=== PATIENT | female | born 1950 | race Two or more races ===

== ENCOUNTER 2022-06-01 13:30 | Inpatient (IN) | payer MEDICARE, OTHER ==
[~2022-06-01] VITALS: Ht 152.4 cm; Wt 87.5 kg
--- NOTE | 2022-06-01 14:00 | NUR ---
Togolese speaking only- order runner (NERY Patel) interprets. Pt compliant with care. Made aware of plan of care
[2022-06-01] MEDS ORDERED: ACETAMINOPHEN ES 500 MG TABLET PO ONE (14:30)
[2022-06-01] MEDS ORDERED: ACETAMINOPHEN ES 500 MG TABLET ONE (15:20)
[2022-06-01 15:37] LABS: BASOPHILS % (AUTO) 0.3 % (0.0-2.0); EOSINOPHILS % (AUTO) 3.3 % (0.0-6.0); HEMATOCRIT 41 % (33-45); HEMOGLOBIN 13.3 g/dL (11.5-14.8); LYMPHOCYTES # (AUTO) 1.8 K/uL (0.8-4.8); LYMPHOCYTES % (AUTO) 21.8 % (20.0-44.0); MEAN CORPUSCULAR HGB CONC 32 g/dl (31.0-36.0); MEAN CORPUSCULAR VOLUME 101 fL (82-100); MONOCYTES # (AUTO) 0.7 K/uL (0.1-1.30); MONOCYTES % (AUTO) 8.1 % (2.0-12.0); NEUTROPHILS # (AUTO) 5.5 K/uL (1.8-8.9); NEUTROPHILS % (AUTO) 66.5 % (43.0-81.0); RED BLOOD CELL COUNT(AUTO) 4.08 MIL/uL (4.0-5.2); WHITE BLOOD COUNT (AUTO) 8.3 K/uL (4.3-11.0)
[2022-06-01 15:48] LABS: CALCIUM, SERUM 8.8 mg/dL (8.5-10.1); CARBON DIOXIDE 28 mmol/L (21-32); CHLORIDE 101 mmol/L (98-107); CREATININE 0.8 mg/dL (0.6-1.3); GLUCOSE 96 mg/dL (74-106); SODIUM SERUM 135 mmol/L (136-145); UREA NITROGEN, BLOOD 12 mg/dL (7-18)
--- NOTE | 2022-06-01 16:00 | NUR ---
NO obvious distress. Reclining in Bed. Family in at bedside
[2022-06-01 16:07] LABS: PLATELET COUNT (AUTO) 236 K/uL (150-450)
--- NOTE | 2022-06-01 18:00 | NUR ---
Re-evaluated by MD. Updated by same. Pending admission
--- NOTE | 2022-06-01 19:24 | NUR ---
Report to MARISOL Galvez
--- NOTE | 2022-06-01 19:26 | NUR ---
MOVE SHEET SUBMITTED.
--- NOTE | 2022-06-01 19:27 | NUR ---
RECEIVED REPORT FROM MARISOL BOOTH.
--- NOTE | 2022-06-01 19:28 | NUR ---
COVID SWAB DONE AND SENT TO LAB
--- NOTE | 2022-06-01 19:35 | NUR ---
PATIENT IS AAOX4. ABLE TO MAKE NEEDS KNOWN. RECEIVED WITH IV KORY ON LEFT FA G20. PATIENT WITH OXYGEN INH AT 3LPM SATS 96%.
--- NOTE | 2022-06-01 20:14 | NUR ---
JANET ([facility]) [phone]. GIVE UPDATE
[2022-06-01] MEDS ORDERED: hydrALAZINE HCL IV 20 MG VIAL IV PRN (20:30)
[2022-06-01] MEDS ORDERED: ONDANSETRON HCL/PF 4 MG/2 ML VIAL IVP PRN (20:30)
[2022-06-01] MEDS ORDERED: ACETAMINOPHEN 325 MG TABLET PO PRN (20:30)
[2022-06-01] MEDS ORDERED: MORPHINE SULFATE INJ 2 MG/ML DISP.SYRIN IV PRN (20:30)
--- NOTE | 2022-06-01 20:36 | NUR ---
DIVINA AGUAYO AT BEDSIDE
--- NOTE | 2022-06-01 20:36 | NUR ---
SISTER LILA ([phone]. FOR UPDATES.
--- NOTE | 2022-06-01 20:44 | NUR ---
REPORT GIVEN TO MARISOL KRUSE
[2022-06-01 21:00] VITALS: BP 134/60
--- NOTE | 2022-06-01 21:13 | NUR ---
TRANSFERRED PATIENT TO ROOM VIA ACLS PROTOCOL
[2022-06-01] MEDS: ENOXAPARIN SODIUM 40 MG/0.4 ML DISP.SYRIN SQ SCH ×2 (21:49→22:00)
--- NOTE | 2022-06-01 22:00 | NUR ---
MOTHERCRAFT NURSE ADMISSION NOTES PATIENT ADMITTED CAME FROM ER VIA GURNEY, PATIENT IS TRINIDADIAN SPEAKING, A/O X 4. PATIENT BREATHING EVENLY AND UNLABORED ON OXYGEN VIA NASAL CANNULA AT 3 LPM SATURATING AT 97%. TRANSFER TO BED SAFELY AND SECURED. ON MODERATE HIGH BACK REST POSITION. NO PAIN OR DISTRESS NOTED UPON ADMISSION. WITH VITALS SIGNS OF BP:134/60, TEMP:97.7, RR:20, MA:63, O2:97%. ATTACHED TO TELE MONITORING DEVICE WITH INITIAL READING OF 63S WITH OCC. PVCs NOTED WITH EPISODES OF BRADYCARDIA.DOCTOR ERIC INFORM REGARDING IT AND THE ADMISSION. SKIN ASSESSMENT PERFORMED, SKIN C/D/I. NO EDEMA PRESENT. BOWEL SOUNDS ACTIVE. WITH IV ACCESS AT LEFT FA #20G PATENT AND INTACT. PATIENT WAS ORIENTED TO ROOM AND HOW TO USE THE CALL LIGHT, BELONGINGS ACCOUNTED FOR. SAFELY MEASURES MAINTAINED. KEPT BED ON LOWER LOCK POSITION. KEPT SIDE RAILS UP X3 ALL THE TIME KEPT BED ALARM ON. KEPT CALL LIGHT WITHIN AT REACH. HEAD TO TOE ASSESSMENT DONE AND RECORDED. HISTORY TAKEN AND RECORDED. PATIENT IS COOPERATIVE AND RESPONSIVE. WILL CONTINUE TO MONITOR.
--- NOTE | 2022-06-01 22:00 | NUR ---
FIRER KILN NOTES RECEIVED CALL FROM LAB. WITH LACTIC ACID OF 3.0 DR. REYES INFORM WITH NO NEW ORDER. WILL CONTINUE TO MONITOR
[2022-06-01] MEDS ORDERED: DEXTROSE 50%-WATER 50 ML DISP.SYRIN IV PRN (23:30)
[2022-06-02] VITALS: BP 126/63
[2022-06-02 00:46] LABS: BILIRUBIN,DIRECT 0.2 mg/dL (0.0-0.2); BILIRUBIN,TOTAL 0.4 mg/dL (0.2-1.0)
[2022-06-02 05:00] VITALS: BP 149/70
--- NOTE | 2022-06-02 06:11 | NUR ---
STORES LABORER NOTES NOTED MRSA SWAB NOT DONE BY THE ER. MRSA SWABBED DONE AND SENT TO LABORATORY.
--- NOTE | 2022-06-02 06:12 | NUR ---
HOGSHEAD FILLER CLOSING NOTES PATIENT IS IN BED, ASLEEP ON MODERATE HIGH BACK REST POSITION. HOOKED TO OXYGEN VIA NASAL CANNULA AT 2LPM VIA NASAL CANNULA TOLERATING WELL. NO EPISODES OF SHORTNESS OF BREATH. ATTACHED TO TELE MONITORING DEVICE WITH EPISODES OF BRADYCARDIA AND PVCs NOTED DURING THE SHIFT.WITH IV ACCESS AT LEFT FA#20G SL PATENT AND INTACT.NO S/S OF CHEST PAIN OR DISCOMFORT AT THIS TIME. ON DNR/DNI STATUS.ALL DUE MEDICATIONS GIVEN, ALL NEED ATTENDED. KEPT PATENT WARM AND COMFORTABLE. KEPT PATIENT ON MODERATE HIGH BACK REST POSITION, KEPT SIDE RAILS UP X 2 ALL THE TIME. KEPT CALL LIGHT WITHIN AT REACH. WILL ENDORSED TO AM SHIFT FOR ANTWON.
[2022-06-02 06:18] LABS: BASOPHILS % (AUTO) 0.1 % (0.0-2.0); EOSINOPHILS % (AUTO) 2.9 % (0.0-6.0); HEMATOCRIT 39 % (33-45); HEMOGLOBIN 12.6 g/dL (11.5-14.8); LYMPHOCYTES # (AUTO) 1.2 K/uL (0.8-4.8); LYMPHOCYTES % (AUTO) 17.2 % (20.0-44.0); MEAN CORPUSCULAR HGB CONC 33 g/dl (31.0-36.0); MEAN CORPUSCULAR VOLUME 99 fL (82-100); MONOCYTES # (AUTO) 0.5 K/uL (0.1-1.30); MONOCYTES % (AUTO) 7.1 % (2.0-12.0); NEUTROPHILS # (AUTO) 5.2 K/uL (1.8-8.9); NEUTROPHILS % (AUTO) 72.7 % (43.0-81.0); PLATELET COUNT (AUTO) 225 K/uL (150-450); WHITE BLOOD COUNT (AUTO) 7.2 K/uL (4.3-11.0)
[2022-06-02 06:43] LABS: ALANINE AMINOTRANSFERASE 16 U/L (12-78); ALBUMIN 3.3 g/dL (3.4-5.0); ALKALINE PHOSPHATASE 65 U/L (46-116); ASPARTATE AMINOTRANSFERASE 17 U/L (15-37); BILIRUBIN,TOTAL 0.5 mg/dL (0.2-1.0); CALCIUM, SERUM 8.9 mg/dL (8.5-10.1); CARBON DIOXIDE 33 mmol/L (21-32); CHLORIDE 103 mmol/L (98-107); CREATININE 0.8 mg/dL (0.6-1.3); GLUCOSE 119 mg/dL (74-106); MAGNESIUM 1.3 mg/dL (1.8-2.4); PHOSPHORUS 3.1 mg/dL (2.5-4.9); POTASSIUM 4.5 mmol/L (3.5-5.1); SODIUM SERUM 140 mmol/L (136-145); TOTAL PROTEIN, SERUM 6.7 g/dL (6.4-8.2); UREA NITROGEN, BLOOD 9 mg/dL (7-18)
[2022-06-02 07:00] VITALS: BP 152/66
--- NOTE | 2022-06-02 07:03 | NUR ---
RECOOPERER OPENING NOTES RECEIVED PATIENT SLEEPING IN BED, A/Ox4, ANDORRAN SPEAKING. ON 2L OF O2 VIA NC. NO S/S OF RESPIRATORY DISTRESS. IV ACCESS LFA #20G SL. INTACT AND PATENT. ON TELE MONITORING SHOWING SINUS RHYTHM HR 63. NO C/O OF CARDIAC DISTRESS OR DISCOMFORT. PATIENT ON BED REST, AMBULATE WITH ASSIST. CONTINENT HAS BATHROOM PRIVILEGE. SKIN INTACT. SAFETY MEASURES IN PLACE: BED LOCKED AND IN LOWEST POSITION, HOB ELEVATED, SIDE RAILS UPx2, CALL LIGHT WITHIN REACH. WILL CONTINUE TO MONITOR.
[2022-06-02] MEDS: BLOOD SUGAR DIAGNOSTIC 1 EACH STRIP IN SCH ×4 (07:57→21:51)
[2022-06-02] MEDS ORDERED: CLOP75TA15 PO (08:11)
[2022-06-02] MEDS ORDERED: DONE10TA44 PO (08:11)
[2022-06-02] MEDS ORDERED: SITA1TAB6 PO (08:11)
[2022-06-02] MEDS ORDERED: INSU100I19 SQ (08:11)
[2022-06-02] MEDS ORDERED: BUPR150T10 PO (08:11)
[2022-06-02] MEDS ORDERED: ALBU6.7H9 INH (08:11)
[2022-06-02] MEDS ORDERED: GABA300C PO (08:11)
[2022-06-02] MEDS ORDERED: LORA2TAB95 PO (08:11)
[2022-06-02] MEDS ORDERED: ATOR40TA PO (08:11)
[2022-06-02] MEDS ORDERED: ISOS120T13 PO (08:11)
[2022-06-02] MEDS ORDERED: AMLO-213 PO (08:11)
[2022-06-02] MEDS ORDERED: FUROSEMIDE 40 MG/4 ML VIAL IV SCH (09:00)
--- NOTE | 2022-06-02 09:31 | NUR ---
RN NOTES PATIENT COMPLAINED OF CHEST PAIN, PRN MORPHINE ADMINISTERED. WILL CONTINUE TO MONITOR.
[2022-06-02] MEDS ORDERED: Magnesium 1GM/D5W 100ML PREMIX 100 ML IV SCH (10:00)
[2022-06-02] MEDS ORDERED: MAGNESIUM OXIDE 400 MG TABLET PO ONE ×2 (11:00→12:00)
[2022-06-02] MEDS: INSULIN REGULAR, HUMAN 100 UNIT/ML 3 ML VIAL SQ PRN ×2 (11:47→21:52)
[2022-06-02 12:00] VITALS: BP 166/84
[2022-06-02] MEDS ORDERED: HYDROCODONE/APAP 10/325MG TABLET PO PRN (12:00)
--- NOTE | 2022-06-02 12:12 | NUR ---
RN NOTES RECEIVED NEW ORDER FOR NARCO 10-325 MG Q6H FOR PAIN. NEW ORDERS CARRIED OUT. PATIENT HAD PAIN 7/10 OF THE FEET/LEGS. PRN NARCO ADMINISTERED. WILL CONTINUE TO MONITOR.
[2022-06-02] MEDS: ATORVASTATIN 40 MG TABLET PO SCH ×2 (13:30→21:42)
[2022-06-02] MEDS: GABAPENTIN 300 MG CAPSULE PO SCH ×2 (14:02→17:05)
[2022-06-02] MEDS: CLOPIDOGREL BISULFATE 75 MG TABLET PO SCH (14:02)
[2022-06-02] MEDS: AMLODIPINE BESYLATE 10 MG TABLET PO SCH (14:03)
[2022-06-02 14:24] LABS: THYROID STIMULATING HORMONE 0.879 uIU/mL (0.358-3.74)
[2022-06-02 16:00] VITALS: BP 153/68
[2022-06-02] MEDS: DONEPEZIL 5 MG TABLET PO SCH (17:05)
--- NOTE | 2022-06-02 18:41 | NUR ---
POULTRY HELPER CLOSING NOTES PATIENT AWAKE IN BED, A/Ox4, THAI SPEAKING. STABLE ON ROOM AIR. NO S/S OF RESPIRATORY DISTRESS. IV ACCESS LFA #20G SL. INTACT AND PATENT. ON TELE MONITORING SHOWING SINUS RHYTHM HR 63. NO C/O OF CARDIAC DISTRESS OR DISCOMFORT. PATIENT ON BED REST, AMBULATE WITH ASSIST. CONTINENT HAS BATHROOM PRIVILEGE. SKIN INTACT. SAFETY MEASURES MAINTAINED: BED LOCKED AND IN LOWEST POSITION, HOB ELEVATED, SIDE RAILS UPx2, CALL LIGHT WITHIN REACH. WILL ENDORSE TO NEXT SHIFT ANY ANTWON.
--- NOTE | 2022-06-02 19:51 | NUR ---
noc rn opening received patient in bed, a/ox4, 1 family member at bedside. no s/s of apparent distress on room air. denies pain at this time. reading sr on the tele monitor 61 bpm with occasional PVC's. no fluids running at this time. re-oriented and encouraged with the use of call light. safety in place-- bed in lowest, locked position, side rails up X2, call light within reach. will continue with the plan of care for patient.
[2022-06-02 20:00] VITALS: BP 141/64
[2022-06-02] MEDS: ENOXAPARIN SODIUM 40 MG/0.4 ML DISP.SYRIN SQ SCH (21:43)
[2022-06-03] VITALS: BP 146/73
[2022-06-03 04:00] VITALS: BP 139/70
[2022-06-03 05:00] VITALS: BP_SYST 144; BP_SYST 148; BP_SYST 152; BP_DIAS 68; BP_DIAS 71; BP_DIAS 80
[2022-06-03 06:32] LABS: BASOPHILS % (AUTO) 0.2 % (0.0-2.0); EOSINOPHILS % (AUTO) 0.7 % (0.0-6.0); HEMATOCRIT 44 % (33-45); HEMOGLOBIN 14.3 g/dL (11.5-14.8); LYMPHOCYTES # (AUTO) 1.4 K/uL (0.8-4.8); LYMPHOCYTES % (AUTO) 19.1 % (20.0-44.0); MEAN CORPUSCULAR HGB CONC 33 g/dl (31.0-36.0); MEAN CORPUSCULAR VOLUME 98 fL (82-100); MONOCYTES # (AUTO) 0.6 K/uL (0.1-1.30); MONOCYTES % (AUTO) 8.5 % (2.0-12.0); NEUTROPHILS # (AUTO) 5.2 K/uL (1.8-8.9); NEUTROPHILS % (AUTO) 71.5 % (43.0-81.0); PLATELET COUNT (AUTO) 260 K/uL (150-450); RED BLOOD CELL COUNT(AUTO) 4.47 MIL/uL (4.0-5.2); WHITE BLOOD COUNT (AUTO) 7.3 K/uL (4.3-11.0)
[2022-06-03 07:00] VITALS: BP 156/62
[2022-06-03] MEDS: BLOOD SUGAR DIAGNOSTIC 1 EACH STRIP IN SCH ×3 (07:02→17:04)
[2022-06-03] MEDS: INSULIN REGULAR, HUMAN 100 UNIT/ML 3 ML VIAL SQ PRN ×3 (07:03→17:03)
[2022-06-03 07:13] LABS: ALBUMIN 3.6 g/dL (3.4-5.0); BILIRUBIN,TOTAL 0.6 mg/dL (0.2-1.0); CALCIUM, SERUM 9.2 mg/dL (8.5-10.1); CREATININE 0.8 mg/dL (0.6-1.3); MAGNESIUM 1.7 mg/dL (1.8-2.4); PHOSPHORUS 3.1 mg/dL (2.5-4.9); POTASSIUM 3.1 mmol/L (3.5-5.1); TOTAL PROTEIN, SERUM 7.3 g/dL (6.4-8.2)
--- NOTE | 2022-06-03 07:37 | NUR ---
noc rn note needs attended. report given to MARISOL Silvestre for continuity of patient care.
--- NOTE | 2022-06-03 07:51 | NUR ---
ERGONOMIC SPECIALIST OPENING NOTES: RECEIVED PATIENT AWAKE IN BED, A/Ox4, BHUTANESE SPEAKING. STABLE ON ROOM AIR; NO S/S OF RESPIRATORY DISTRESS. IV ACCESS LFA #20G SL, INTACT AND PATENT. ON TELE MONITORING READING SINUS RHYTHM HR 78. NO C/O OF CARDIAC DISTRESS OR DISCOMFORT. PATIENT ON BED REST, AMBULATE WITH ASSIST. WITNESSED GOING TO BR, WITH STEADY GAIT BUT STILL WITH 1 PERSON ASSIST FOR FALL PRECAUTION. SAFETY MEASURES MAINTAINED: BED LOCKED AND IN LOWEST POSITION, HOB ELEVATED, SIDE RAILS UPx2, CALL LIGHT AND TABLE WITHIN REACH, WILL CONT WITH PLAN OF CARE DURING SHIFT.
[2022-06-03] MEDS: GABAPENTIN 300 MG CAPSULE PO SCH ×2 (08:44→16:14)
[2022-06-03] MEDS: CLOPIDOGREL BISULFATE 75 MG TABLET PO SCH (08:44)
[2022-06-03] MEDS: AMLODIPINE BESYLATE 10 MG TABLET PO SCH (08:45)
[2022-06-03] MEDS ORDERED: ISOSORBIDE MONONITRATE (30MG) 30 MG TAB.SR.24H PO SCH (09:00)
[2022-06-03] MEDS: hydrALAZINE HCL 50 MG TABLET PO SCH ×3 (10:35→16:59)
[2022-06-03] MEDS ORDERED: MAGNESIUM OXIDE 400 MG TABLET PO ONE (11:00)
[2022-06-03] MEDS: POTASSIUM CHLORIDE 20 MEQ POWDER PACKET NG SCH ×3 (11:16→13:55)
--- NOTE | 2022-06-03 11:44 | NUR ---
RN NOTES: PT ASKED MED FOR HEADACHE, PAIN LEVEL 3/10, WILL MEDICATE ORDERED
[2022-06-03] MEDS ORDERED: DONE5TAB34 PO (16:12)
[2022-06-03] MEDS ORDERED: HYDR-4077 PO (16:12)
[2022-06-03] MEDS ORDERED: ISOS30TA86 PO (16:12)
[2022-06-03] MEDS ORDERED: ATOR40TA PO (16:12)
[2022-06-03] MEDS ORDERED: AMLO-213 PO (16:12)
[2022-06-03] MEDS ORDERED: CLOP75TA15 PO (16:12)
[2022-06-03 16:59] VITALS: BP 118/54
--- NOTE | 2022-06-03 17:35 | NUR ---
TEACHER HEARING IMPAIRED NOTES: PT IS STABLE FOR DC PER MD, VITALS WNL, ON RA WITH NO S/S OF SOB. DISCHARGE INSTRUCTIONS, BELONGINGS LIST DISCUSSED WITH PATIENTS, ALL DOCS SIGNED, PACKET GIVEN TO PT/FAMILY. ID BAND AND IV ACCESS REMOVED, PT ESCORTED BY WOOD BORER TO LOBBY VIA WHEELCHAIR. PT HAS PRIVATE TRANSPORTATION WITH [facility].
[2022-06-03] MEDS: DONEPEZIL 5 MG TABLET PO SCH (18:00)
[2022-06-04 11:17] LABS: ABG BASE EXCESS 5.9 mmol/L; ABG PCO2 34.3 mmHg (35.0-45.0); ABG PH 7.535 (7.350-7.450); ABG PO2 65.5 mmHg (75.0-100.0); COHb 0.6 % (0.5-1.5); MetHb 0.2 % (0.0-1.5); O2Hb 93.5 % (94.0-97.0); SITE, ABG Left Radial; VENT MODE, BG ROOM AIR
== END 2022-06-03 18:15 | disposition home health service (06) | DRG 291 ==
LOC: ER 13:34 → TELE 20:24 → MED 06-03 10:17
PROVIDERS: ADMIT Internal Medicine; ATTEND Nurse Practitioner Acute Care
DX: I11.0 Hypertensive heart disease with heart failure (principal); I50.33 Acute on chronic diastolic (congestive) heart failure; J96.21 Acute and chronic respiratory failure with hypoxia; E87.29 Other acidosis; E66.2 Morbid (severe) obesity with alveolar hypoventilation; Z20.822 Contact with and (suspected) exposure to COVID-19; E11.9 Type 2 diabetes mellitus without complications; G89.29 Other chronic pain; R29.6 Repeated falls; M54.81 Occipital neuralgia; Z68.37 Body mass index [BMI] 37.0-37.9, adult; I27.20 Pulmonary hypertension, unspecified; Z79.4 Long term (current) use of insulin; Z79.51 Long term (current) use of inhaled steroids; Z79.02 Long term (current) use of antithrombotics/antiplatelets; Z79.84 Long term (current) use of oral hypoglycemic drugs; Z79.899 Other long term (current) drug therapy; H50.9 Unspecified strabismus; W18.30XA Fall on same level, unspecified, initial encounter; H50.10 Unspecified exotropia; Y92.9 Unspecified place or not applicable; M48.02 Spinal stenosis, cervical region; H53.2 Diplopia; I70.0 Atherosclerosis of aorta; Z91.199 Patient's noncompliance with other medical treatment and regimen due to unspecified reason; Z96.652 Presence of left artificial knee joint; S09.90XA Unspecified injury of head, initial encounter; M54.2 Cervicalgia; Z66 Do not resuscitate
CPT/HCPCS: 36415; 36600; 70450-TC; 71045-TC; 72125-TC; 73560-TC; 80048-TC; 80053-TC; 80061-TC; 82247-TC; 82248-TC; 82803-TC; 82962-TC; 83605-TC; 83735-TC; 83880; 84100-TC; 84439-TC; 84443-TC; 84484-TC; 85025-TC; 87081-TC; 93307-TC; 93970-TC; 97112-TC; 97116-TC; 97530-TC; C9803; G0378; J0360; J1650; J1815; J1940; J2270